=== PATIENT | male | born 1980 | race Caucasian/White ===

== ENCOUNTER 2023-09-10 15:51 | Outpatient (OUT) | payer OTHER, SELFPAY ==
--- NOTE | 2023-09-10 16:02 | US_ITS ---
The [address] [address] Patient Name: COLIN PORTER MRN: [id number] date: 1980 Sex: M Assigned Patient Location: US Current Patient Location: Accession/Order Number: [id number] Exam Date: 09/10/2023 16:09 Report Date: 09/12/2023 06:51 At the request of: LESLIE MCKEON Procedure: US abdomen limited EXAM: US abdomen limited HISTORY: . ABDOMINAL DISCOMFORT IN LEFT LOWER QUADRANT R10.32 . COMPARISON: None. TECHNIQUE: Grayscale and color imaging was performed FINDINGS: Scanning of the periumbilical region regional to the patient's area of pain there is a 5.6 x 3.2 x 5.5 cm mixed echogenic smoothly marginated oblong solid area. Within the left lower quadrant regional to the patient's area of pain and no discrete solid or cystic mass was noted. Bowel loops were noted in this area in the abdomen. US/US abdomen limited IMPRESSION: 1 no discrete mass noted ultrasonographically in the left lower quadrant. 2. In the periumbilical region there is a 5.6 x 3.2 cm smoothly marginated oblong mixed echogenic area. Findings could represent a hernia. Clinical correlation is suggested. CT of the abdomen and pelvis could be performed for further evaluation. Electronically authenticated by: JORDAN TEAGUE Date: 09/12/2023 06:51
== END 2023-09-10 15:52 | disposition home or self-care (01) ==
LOC: US 15:53
PROVIDERS: PCP Nurse Practitioner Family; Visit Provider Nurse Practitioner Family
DX: R10.32 Left lower quadrant pain (principal)
CPT/HCPCS: 76705

== ENCOUNTER 2023-09-13 09:14 | Outpatient (OUT) | payer OTHER, SELFPAY ==
[2023-09-13 09:33] LABS: Basophils Absolute Auto 0.1 10^3/uL (0.0-0.1); Basophils Percent Auto 0.7 % (0.2-2.0); Eosinophils Absolute Auto 0.1 10^3/uL (0.0-0.7); Eosinophils Percent Auto 1.7 % (0.9-7.0); Hematocrit 47.5 % (42.0-54.0); Immature Granulocytes Abs Auto 0.03 10^3/uL (0.00-0.03); Immature Granulocytes Pct Auto 0.4 % (0.0-0.5); Lymphocytes Absolute Auto 2.3 10^3/uL (1.2-3.8); Mean Corpuscular HGB Conc 33.7 g/dL (29.9-35.2); Mean Corpuscular Hemoglobin 31.4 pg (25.9-34.0); Mean Corpuscular Volume 93.1 fL (80.0-94.0); Mean Platelet Volume 8.6 fL (9.5-13.5); Monocytes Absolute Auto 0.5 10^3/uL (0.3-0.8); Monocytes Percent Auto 7.4 % (1.7-12.0); Neutrophils Percent Auto 56.8 % (43.0-75.0); Platelet Count 397 10^3/uL (150-450); Red Cell Distribution Width 11.9 % (11.0-15.0)
[2023-09-13 09:45] LABS: Estimated Average Glucose 128 mg/dL; Glycohemoglobin A1C 6.1 % (4.5-6.2)
[2023-09-13 09:58] LABS: Alanine Aminotransferase 92 U/L (16-63); Albumin Level 4.3 g/dL (3.4-5.0); Alkaline Phosphatase 77 U/L (46-116); Anion Gap 12.7; Aspartate Amino Transferase 44 U/L (15-37); BUN Creatinine Ratio 12.8; Bilirubin Total 0.5 mg/dL (0.2-1.0); Calcium 9.6 mg/dL (8.5-10.1); Carbon Dioxide 32.3 mmol/L (21.0-32.0); Chloride 97 mmol/L (98-107); Cholesterol 217 mg/dL (<=200); Estimated GFR (African America >60 (>=60); Estimated GFR (Non-African Ame >60 (>=60); Free T3 3.51 pg/mL (2.18-3.98); Globulin 4.2 g/dL; Glucose 113 mg/dL (74-106); HDL Cholesterol 43 mg/dL (40-60); Sodium 138 mmol/L (136-145); Thyroid Stimulating Hormone 1.458 uIU/mL (0.358-3.740); Total Protein 8.5 g/dL (6.4-8.2); Triglycerides 204 mg/dL (<=150); VLDL CHOLESTEROL 40.8 mg/dL
[2023-09-15 12:08] LABS: Insulin 53.7 uIU/mL (2.6-24.9)
== END 2023-09-13 09:15 | disposition home or self-care (01) ==
LOC: LAB 09:15
PROVIDERS: PCP Nurse Practitioner Family; Visit Provider Nurse Practitioner Family
DX: Z00.00 Encounter for general adult medical examination without abnormal findings (principal); E78.5 Hyperlipidemia, unspecified; R53.83 Other fatigue; R73.9 Hyperglycemia, unspecified; I10 Essential (primary) hypertension; E16.1 Other hypoglycemia; E03.9 Hypothyroidism, unspecified
CPT/HCPCS: 36415; 80053; 80061; 83036; 83525; 84436; 84443; 84481; 85025

== ENCOUNTER 2023-09-26 08:16 | Outpatient (OUT) | payer OTHER, SELFPAY ==
--- NOTE | 2023-09-26 08:19 | CT_ITS ---
[address] [address] Patient Name: COLIN PORTER MRN: [id number] date: 1980 Sex: M Assigned Patient Location: CT Current Patient Location: Accession/Order Number: [id number] Exam Date: 09/26/2023 09:25 Report Date: 09/29/2023 11:17 At the request of: LESLIE MCKEON Procedure: CT abdomen pelvis w con EXAMINATION: CT abdomen pelvis w con HISTORY: Abnormal Hernia K46.9 COMPARISON: No relevant comparison available. TECHNIQUE: CT images were created with IV contrast. Axial, Coronal, and Sagittal images. Dose reduction techniques were achieved by using automated exposure control and/or adjustment of mA and/or kV according to patient size and/or use of iterative reconstruction technique. FINDINGS: LUNG BASES: No visible pulmonary or pleural disease. LIVER: Diffuse hypoattenuation the liver consistent with hepatic steatosis. Focal fatty sparing at the gallbladder fossa BILIARY: No visible dilatation or calcification. PANCREAS: No lesion, fluid collection, ductal dilatation, or atrophy. SPLEEN: No enlargement or focal lesion. ADRENALS: No mass or enlargement. KIDNEYS: No mass, obstruction, or calcification. BOWEL/MESENTERY: Nonobstructive bowel gas pattern. Normal appendix. AORTA/VASCULAR: No aortic aneurysm. Mild calcific atherosclerosis RETROPERITONEUM: No mass or adenopathy. LYMPH NODES: No adenopathy. URINARY BLADDER: No visible focal wall thickening, lesion, or calculus. PELVIC ORGANS: No visible mass. Pelvic organs appropriate for patient age. ABDOMINAL WALL: 2 ventral hernias, as supraumbilical 3.2 cm hernia axial image 92 and an umbilical hernia measuring 5.7 cm axial image #102. Both hernias containing mesenteric fat without evidence of strangulation BONES: No bony lesion or fracture. OTHER: Negative. CT/CT abdomen pelvis w con IMPRESSION: 2 umbilical hernias containing mesenteric fat without strangulation Electronically authenticated by: JORDAN BENNETT Date: 09/29/2023 11:17
--- OUTSIDE RECORDS SUMMARY | 2023-09-26 08:21 | XMS_ITS | CCD ---
Author Organization [facility] Care Team Providers Care Sound Assistant Name Role Phone MIKE, LESLIE Admitting Unavailable MIKE, LESLIE Primary Care Unavailable MIKE, LESLIE Attending Unavailable MIKE, LESLIE Admitting Unavailable MIKE, LESLIE Primary Care Unavailable MIKE, LESLIE Consulting Unavailable MIKE, LESLIE Attending Unavailable MIKE, LESLIE Attending Unavailable MIKE, LESLIE Admitting Unavailable MIKE, LESLIE Primary Care Unavailable MIKE, LESLIE Consulting Unavailable MIKE, LESLIE Admitting Unavailable MIKE, LESLIE Primary Care Unavailable MIKE, LESLIE Attending Unavailable Rc Milan DO Attending Unavailabl e Rc Milan DO Primary Care Unavailabl e Allergies Allergy Classification Reported Allergen(s) Allergy Type Date of Onset Reaction(s) Facility (2 sources) Aspirin Drug Allergy 08-05-2016 [facility] Repository Problems Active Problems Problem Classification Problem Date Documented Da te Episodic/Chronic Unclassified (3 sources) CONTACT W/AND (SUSP) EXPOS COVID-19; Translations: [CONTACT W/AND (SUSP) EXPOS COVID-19] Onset: 03-17-2021 Unclassified (1 source) COUGH, UNSPECIFIED; Translations: [COUGH, UNSPECIFIED] Onset: 03-17-2021 Past or Other Problems Problem Classification Problem Date Documented Da te Episodic/Chronic Other upper respiratory disease (1 source) Other specified disorders of nose and nasal sinuses; Translations: [OTH SPEC D/O NOSE NASAL SINUSES] Onset: 03-17-2021 Episodic Unclassified (1 source) CONTACT W/AND (SUSP) EXPOS COVID-19; Translations: [CONTACT W/AND (SUSP) EXPOS COVID-19] Onset: 03-12-2021 Results Test Name Value Interpretation Reference Range Facility 25-HYDROXY VIT D (D2+D3 FRAC ) LC/MS-MSon 10-19-2021 25-Hydroxy, Vitamin D 58 ng/mL Normal [facility] Comment on above: Result Comment: Refe rence Range: All Ages: Target levels 30 - 100 Performed By: #### V ITDLC #### [facility] [address] [place] [address] Dr. Cheng Esqueda 25-Hydroxy, Vitamin D-2 <1.0 Normal [facility] Comment on above: Result Comment: This test was developed and its performance characteristics determined by [facility]. It has not been cleared or approved by the Food and Drug Administration. Performed By: #### V ITDLC #### [facility] [address] [place] [address] Dr. Cheng Esqueda 25-Hydroxy, Vitamin D-3 58 ng/mL Normal [facility] Comment on above: Result Comment: This test was developed and its performance characteristics determined by [facility]. It has not been cleared or approved by the Food and Drug Administration. Performed By: #### V ITDLC #### [facility] [address] [place] [address] Dr. Cheng Esqueda INSULINon 10-15-2021 Insulin 60.7 uIU/mL Critically high 2.6-24.9 [facility] Comment on above: Performed By: #### I NSULIN #### [facility] [address] [place] [address] Dr. Cheng Esqueda TESTOSTERONE, TOTALon 2021 Testosterone [Mass/Vol] 257 ng/dL Critically low 264-916 [facility] Comment on above: Result Comment: Adul t male reference interval is based on a population of healthy nonobese males (BMI <30) between 19 and 39 years old. Marika et.al. JCEM 2017,102;8274-3377. PMID: [id number]. Performed By: #### I NSULIN #### [facility] [address] [place] [address] Dr. Cheng Esqueda CBC AUTO DIFFon 10-13-2021 BASO # 0.0 103/ul Normal 0.0-0.1 [facility] Comment on above: Performed By: #### C BC #### [facility] [address] [place] [address] Dr. Cheng Esqueda Basophils/100 WBC (Bld) 0.8 % Normal 0.2-2.0 [facility] Comment on above: Performed By: #### C BC #### [facility] [address] [place] [address] Dr. Cheng Esqueda EO # 0.1 103/ul Normal 0.0-0.7 [facility] Comment on above: Performed By: #### C BC #### [facility] [address] [place] [address] Dr. Cheng Esqueda Eosinophils/100 WBC (Bld) 2.7 % Normal 0.9-7.0 [facility] Comment on above: Performed By: #### C BC #### [facility] [address] [place] [address] Dr. Cheng Esqueda Erythrocyte distribution width (RBC) [Ratio] 11.9 % Normal 11.0-15.0 [facility] Comment on above: Performed By: #### C BC #### [facility] [address] [place] [address] Dr. Cheng Esqueda Hematocrit (Bld) [Volume fraction] 46.4 % Normal 42.0-54.0 [facility] Comment on above: Performed By: #### C BC #### [facility] [address] [place] [address] Dr. Cheng Esqueda Hemoglobin (Bld) [Mass/Vol] 15.8 g/dL Normal 14.0-18.0 [facility] Comment on above: Performed By: #### C BC #### [facility] [address] [place] [address] Dr. Cheng Esqueda IG # 0.02 10e3/ul Normal 0.00-0.03 [facility] Comment on above: Performed By: #### C BC #### [facility] [address] [place] [address] Dr. Cheng Esqueda IG % 0.4 % Normal 0.0-0.5 [facility] Comment on above: Performed By: #### C BC #### [facility] [address] [place] [address] Dr. Cheng Esqueda LYMPH # 1.9 103/ul Normal 1.2-3.8 [facility] Comment on above: Performed By: #### C BC #### [facility] [address] [place] [address] Dr. Cheng Esqueda Lymphocytes/100 WBC (Bld) 36.8 % Normal 20.5-60.0 [facility] Comment on above: Performed By: #### C BC #### [facility] [address] [place] [address] Dr. Cheng Esqueda MANUAL DIFF REQ NO Normal [facility] Comment on above: Performed By: #### C BC #### [facility] [address] [place] [address] Dr. Cheng Esqueda MCH (RBC) [Entitic mass] 31.5 pg Normal 25.9-34.0 [facility] Comment on above: Performed By: #### C BC #### [facility] [address] [place] [address] Dr. Cheng Esqueda MCHC (RBC) [Mass/Vol] 34.1 g/dL Normal 29.9-35.2 [facility] Comment on above: Performed By: #### C BC #### [facility] [address] [place] [address] Dr. Cheng Esqueda MCV (RBC) [Entitic vol] 92.4 fL Normal 80.0-94.0 [facility] Comment on above: Performed By: #### C BC #### [facility] [address] [place] [address] Dr. Cheng Esqueda MONO # 0.5 103/ul Normal 0.3-0.8 [facility] Comment on above: Performed By: #### C BC #### [facility] [address] [place] [address] Dr. Cheng Esqueda Monocytes/100 WBC (Bld) 8.7 % Normal 1.7-12.0 [facility] Comment on above: Performed By: #### C BC #### [facility] [address] [place] [address] Dr. Cheng Esqueda NEUT # 2.6 103/ul Normal 1.4-6.5 [facility] Comment on above: Performed By: #### C BC #### [facility] [address] [address] [address] Cheng Esqueda Neutrophils/100 WBC (Bld) 50.6 % Normal 43.0-75.0 [facility] Comment on above: Performed By: #### C BC #### [facility] [address] [address] [address] Cheng Esqueda Platelet mean volume (Bld) [Entitic vol] 8.4 fL Critically low 9.5-13.5 [facility] Comment on above: Performed By: #### C BC #### [facility] [address] [place] [address] Dr. Cheng Esqueda PLT 331 103/ul Normal 150-450 [facility] Comment on above: Performed By: #### C BC #### [facility] [address] [place] [address] Dr. Cheng Esqeuda RBC 5.02 106/ul Normal 4.70-6.10 [facility] Comment on above: Performed By: #### C BC #### [facility] [address] [address] [address] Cheng Esqueda WBC 5.2 103/ul Normal 4.0-11.0 [facility] Comment on above: Performed By: #### C BC #### [facility] [address] [place] [address] Dr. Cheng Esqueda FREE THYROXINE INDEX T7on FTI 1.74 Normal 1.30-4.50 [facility] Comment on above: Performed By: #### L IPID, CMP, TSH, T7 #### [facility] [address] [address] [address] Cheng Esqueda T3U 31.0 % Critically low 33.0-40.0 [facility] Comment on above: Performed By: #### L IPID, CMP, TSH, T7 #### [facility] [address] [address] [address] Cheng Esqueda T4 [Mass/Vol] 5.60 ug/dL Normal 4.50-12.10 [facility] Comment on above: Performed By: #### L IPID, CMP, TSH, T7 #### [facility] [address] [id number] [address] Cheng Esqueda GLYCOHEMOGLOBIN A1Con 2021 ADA RECOMMENDATION SEE BELOW Normal [facility] Comment on above: Result Comment: ADA RECOMMENDED LIMIT 4.0 - 6.0 ADA THERAPEUTIC TARGET < 7.0 ACTION SUGGESTED > 7.0 Performed By: #### A 1C #### [facility] [address] [address] [address] Cheng Esqueda Glucose [Mass/Vol] 123 mg/dL Normal [facility] Comment on above: Performed By: #### A 1C #### [facility] [address] [place] [address] Dr. Cheng Esqueda HbA1c (Bld) [Mass fraction] 5.9 % Normal 4.5-6.2 [facility] Comment on above: Performed By: #### A 1C #### [facility] [address] [address] [address] Cheng Esqueda LIPID PROFILEon 10-13-2021 CHOL-HDL RATIO NORM SEE BELOW Normal [facility] Comment on above: Result Comment: 3.3 - 4.4 LOW RISK 4.4 - 7.1 AVERAGE RISK 7.1 - 11.0 MODERATE RISK >11.0 HIGH RISK Performed By: #### L IPID, CMP, TSH, T7 #### [facility] [address] [address] [address] Cheng Esqueda Cholesterol [Mass/Vol] 203 mg/dL Critically high <=200 [facility] Comment on above: Performed By: #### L IPID, CMP, TSH, T7 #### [facility] [address] [address] [address] Cheng Esqueda Cholesterol in HDL [Mass/Vol] 36 mg/dL Critically low 40-60 [facility] Comment on above: Performed By: #### L IPID, CMP, TSH, T7 #### [facility] [address] [address] [address] Cheng Esqueda Cholesterol in LDL [Mass/Vol] 116.0 mg/dL Normal [facility] Comment on above: Performed By: #### L IPID, CMP, TSH, T7 #### [facility] [address] [address] [address] Cheng Esqueda Cholesterol.total/Cho lesterol in HDL [Mass ratio] 5.6 {ratio} Normal [facility] Comment on above: Performed By: #### L IPID, CMP, TSH, T7 #### [facility] [address] [address] [address] Cheng Esqueda HDL NORMAL > or = 60 mg/dl - LO W CARDIOVASCULAR RISK <40 mg/dl - HIGH CARDIOVASCULAR RISK Normal [facility] Comment on above: Performed By: #### L IPID, CMP, TSH, T7 #### [facility] [address] [address] [address] Cheng Esqueda LDL CALC NORMAL SEE BELOW Normal [facility] Comment on above: Result Comment: <100 mg/dl OPTIMAL 100 - 129 mg/dl NEAR OR ABOVE OPTIMAL 130 - 159 mg/dl BORDERLINE HIGH 160 - 189 mg/dl HIGH >190 mg/dl VERY HIGH Performed By: #### L IPID, CMP, TSH, T7 #### [facility] [address] [address] [address] Cheng Esqueda Triglyceride [Mass/Vol] 255 mg/dL Critically high <=150 [facility] Comment on above: Performed By: #### L IPID, CMP, TSH, T7 #### [facility] [address] [address] [address] Cheng Esqueda VLDL CALC 51.0 mg/dL Normal [facility] Comment on above: Performed By: #### L IPID, CMP, TSH, T7 #### [facility] [address] [address] [address] Cheng Esqueda PROF 14(COMP METB)on 022 Albumin [Mass/Vol] 4.4 g/dL Normal 3.4-5.0 [facility] Comment on above: Performed By: #### L IPID, CMP, TSH, T7 #### [facility] [address] [address] [address] Cheng Esqueda Albumin/Globulin [Mass ratio] 1.2 {ratio} Normal [facility] Comment on above: Performed By: #### L IPID, CMP, TSH, T7 #### [facility] [address] [address] [address] Cheng Esqueda ALP [Catalytic activity/Vol] 74 U/L Normal 46-116 [facility] Comment on above: Performed By: #### L IPID, CMP, TSH, T7 #### [facility] [address] [address] [address] Cheng Esqueda ALT [Catalytic activity/Vol] 93 U/L Critically high 16-63 [facility] Comment on above: Performed By: #### L IPID, CMP, TSH, T7 #### [facility] [address] [address] [address] Cheng Esqueda Anion gap [Moles/Vol] 11.3 mmol/L Normal [facility] Comment on above: Performed By: #### L IPID, CMP, TSH, T7 #### [facility] [address] [address] [address] Cheng Esqueda AST [Catalytic activity/Vol] 43 U/L Critically high 15-37 [facility] Comment on above: Performed By: #### L IPID, CMP, TSH, T7 #### [facility] [address] [address] [address] Cheng Esqueda Bilirubin [Mass/Vol] 0.4 mg/dL Normal 0.2-1.0 [facility] Comment on above: Performed By: #### L IPID, CMP, TSH, T7 #### [facility] [address] [address] [address] Cheng Esqueda Calcium [Mass/Vol] 9.5 mg/dL Normal 8.5-10.1 [facility] Comment on above: Performed By: #### L IPID, CMP, TSH, T7 #### [facility] [address] [address] [address] Cheng Esqueda Chloride [Moles/Vol] 99 mmol/L Normal 98-107 [facility] Comment on above: Performed By: #### L IPID, CMP, TSH, T7 #### [facility] [address] [address] [address] Cheng Esqueda CO2 [Moles/Vol] 31.7 mmol/L Normal 21.0-32.0 [facility] Comment on above: Performed By: #### L IPID, CMP, TSH, T7 #### [facility] [address] [place] [address] Dr. Cheng Esqueda Creatinine [Mass/Vol] 1.06 mg/dL Normal 0.70-1.30 [facility] Comment on above: Performed By: #### L IPID, CMP, TSH, T7 #### [facility] [address] [place] [address] Dr. Cheng Esqueda EGFR-AF FILIPINO >60 Normal >=60 [facility] Comment on above: Performed By: #### L IPID, CMP, TSH, T7 #### [facility] [address] [place] [address] Dr. Cheng Esqueda EGFR-NON AF FILIPINO >60 Normal >=60 [facility] Comment on above: Performed By: #### L IPID, CMP, TSH, T7 #### [facility] [address] [place] [address] Dr. Cheng Esqueda Globulin (S) [Mass/Vol] 3.7 g/dL Normal [facility] Comment on above: Performed By: #### L IPID, CMP, TSH, T7 #### [facility] [address] [address] [address] Cheng Esqueda Glucose [Mass/Vol] 122 mg/dL Critically high 74-106 [facility] Comment on above: Performed By: #### L IPID, CMP, TSH, T7 #### [facility] [address] [place] [address] Dr. Cheng Esqueda Potassium [Moles/Vol] 4.0 mmol/L Normal 3.5-5.1 [facility] Comment on above: Performed By: #### L IPID, CMP, TSH, T7 #### [facility] [address] [place] [address] Dr. Cheng Esqueda Protein [Mass/Vol] 8.1 g/dL Normal 6.4-8.2 [facility] Comment on above: Performed By: #### L IPID, CMP, TSH, T7 #### [facility] [address] [place] [address] Dr. Cheng Esqueda Sodium [Moles/Vol] 138 mmol/L Normal 136-145 [facility] Comment on above: Performed By: #### L IPID, CMP, TSH, T7 #### [facility] [address] [place] [address] Dr. Cheng Esqueda Urea nitrogen [Mass/Vol] 12.0 mg/dL Normal 7.0-18.0 [facility] Comment on above: Performed By: #### L IPID, CMP, TSH, T7 #### [facility] [address] [place] [address] Dr. Cheng Esqueda Urea nitrogen/Creatinine [Mass ratio] 11.3 mg/mg Normal [facility] Comment on above: Performed By: #### L IPID, CMP, TSH, T7 #### [facility] [address] [place] [address] Dr. Cheng Esqueda TSHon 10-13-2021 TSH 0.885 uIU/mL Normal 0.358-3.740 [facility] Comment on above: Performed By: #### L IPID, CMP, TSH, T7 #### [facility] [address] [place] [address] Dr. Cheng Esqueda VITAMIN B12on 10-13-2021 Cobalamin (Vitamin B12) [Mass/Vol] 549.0 pg/mL Normal 193.0-986.0 [facility] Comment on above: Performed By: #### V ITB12 #### [facility] [address] [place] [address] Dr. Cheng Esqueda [facility]on SARS-CoV-2 (COVID-19) RNA LLOYD+probe Ql (Unsp spec) Not detected Normal NOT DETECTED [facility] Comment on above: Result Comment: This test is not yet approved or cleared by the [place] FDA. When there are no FDA-approved or cleared tests available, and other criteria are met, FDA can make tests available under an emergency access mechanism called an Emergency Use Authorization (EUA). The EUA for this test is supported by the Pharmacy Teacher of Health and Human Service's (HHS's) declaration that circumstances exist to justify the emergency use of in vitro diagnostics for the detection and/or diagnosis of the virus that causes COVID-19. This EUA will remain in effect (meaning this test can be used) for the duration of the COVID-19 declaration justifying emergency of IVDs, unless it is terminated or revoked by FDA (after which the test may no longer be used). When diagnostic testing is negative, the possibility of a false negative should be considered in the context of a patient's recent exposures and the presence of clinical signs and symptoms consistent with SARS-CoV-2. Performed By: #### C [facility] #### [facility] [address] [place] [address] Dr. Cheng Esqueda Encounters Encounter Date Encounter Type Care Provider Facility Start: 05-16-2022 ambulatory Rc Milan DO Fa cility:[facility] Start: 11-03-2021 ambulatory LESLIE MCKEON Facility: [facility] Start: 10-16-2021 Encounter for genera l adult medical examination without abnormal findings LESLIE MCKEON [facility] Start: 10-13-2021 End: 10-14-2021 ambulatory LESLIE MCKEON Facility:[facility] Start: 10-13-2021 End: 10-14-2021 Encounter for general adult medical examination without abnormal findings LESLIE MCKEON Facility:[facility] Start: 08-03-2021 ambulatory LESLIE MCKEON Facility: [facility] Start: 03-12-2021 End: 03-12-2021 ambulatory LESLIE MCKEON Facility:[facility] Payers Date Payer Category Payer Unknown 1990 Unknown [id number] 1979 Unknown [id number] 2.16.84 [id number] 1979 Unknown [id number] 2.16.84 [id number] 1979 Unknown [id number] 2.16.84 [id number] 1979 Unknown [id number] [id number] [id number] 1959 Self-pay [id number] 1959 Unknown [id number] Summary Purpose Family History No Family History Records FoundNo Family History Records Found Advance Directives No Advanced Directives Records FoundNo Advanced Directives Records Found Additional Source Comments (unrecognized sect ion and content) No Status Records FoundNo Status Records Found INFORMATION SOURCE (unrecogn ized section and content) DATE CREATED AUTHOR 11/04/2021 [facility] DATE CREATED AUTHOR AUTHOR'S FAVIANIZ GRAHAM 04/30/2022 [facility] FOR RECORDS PERTAINING TO PATIENTS WHO ARE OR HAVE BEEN ENROLLED IN A CHEMICAL DEPENDENCY/SUBSTANCEABUSE PROGRAM, SOME INFORMATION MAY BE OMITTED. This clinical summary was aggregated from multiple sources. Caution should be exercised in using it in the provision of clinical care. This summary normalizes information from multiple sources, and as a consequence, information in this document may materially change the coding, format and clinical context of patient data. In addition, data may be omitted in some cases. CLINICAL DECISIONS SHOULD BE BASED ON THE PRIMARY CLINICAL RECORDS. [facility] [employer] [facility]. provides no warranty or guarantee of the accuracy or completeness of information in this document.
== END 2023-09-26 08:17 | disposition home or self-care (01) ==
LOC: CT 08:16
PROVIDERS: PCP Nurse Practitioner Family; Visit Provider Nurse Practitioner Family
DX: K46.9 Unspecified abdominal hernia without obstruction or gangrene (principal)
CPT/HCPCS: 74177; Q9967

== ENCOUNTER 2024-07-01 09:28 | Outpatient (OUT) | payer OTHER, SELFPAY ==
[2024-07-01 10:01] LABS: Estimated Average Glucose 146 mg/dL; Glycohemoglobin A1C 6.7 % (4.5-6.2)
== END 2024-07-01 09:29 | disposition home or self-care (01) ==
LOC: LAB 09:30
PROVIDERS: PCP Nurse Practitioner Family; Visit Provider Nurse Practitioner Family
DX: E66.01 Morbid (severe) obesity due to excess calories (principal)
CPT/HCPCS: 36415; 83036; 83525

== ENCOUNTER 2024-11-06 09:36 | Outpatient (OUT) | payer OTHER, SELFPAY ==
--- OUTSIDE RECORDS SUMMARY | 2024-11-06 09:39 | XMS_ITS | CCD ---
Author Organization [facility] Care Team Providers Care Supervisor Lens Generating Name Role Phone SAMARA ORDONEZ Admitting Unavailable MIKE, SAMARA Primary Care Unavailable MIKE, SAMARA Attending Unavailable MIKE, SAMARA Admitting Unavailable MIKE, SAMARA Primary Care Unavailable MIKE, SAMARA Consulting Unavailable MIKE, SAMARA Attending Unavailable MIKE, SAMARA Attending Unavailable MIKE, SAMARA Admitting Unavailable MIKE, SAMARA Primary Care Unavailable MIKE, SAMARA Consulting Unavailable MIKE, SAMARA Admitting Unavailable MIKE, SAMARA Primary Care Unavailable MIKE, SAMARA Attending Unavailable Rc Milan DO Attending Unavailabl Rc Atwood DO Primary Care Unavailmargaert e SAMARA ORDONEZ Primary Care Physician [phone] Martell CARMOAN Attending Unavailable MIKE, SAMARA S Referring Unavailable Mike BUMPER AND PAINTER - Samara ELIZONDO Primary Care Provide r MKIE SAMARA S Primary Care Unavailable JOSE VEE Referring Unavailable MIKE, SAMARA S Primary Care Unavailable JOSE VEE Referring Unavailable Allergies Allergy Classification Reported Allergen(s) Allergy Type Date of Onset Reaction(s) Facility (3 sources) Aspirin; Translations: [aspirin] Drug Allergy 7 [facility] Repository (1 source) Aspirin; Translations: [aspirin] Drug Allergy Patient reported problems (finding) [facility] (2 sources) Ibuprofen; Translations: [ibuprofen] Drug Allergy Patient reported problems (finding) [facility] (2 sources) Aluminum aspirin Drug Allergy 8 Other (See Comments) [facility] Medications Current Medications Medication Drug Class(es) Dates Sig (Normalized) Sig (Original) 0.5 ML tirzepatide 5 MG/ML Auto-Injector [Mounjaro] (1 source) Start: 09-30-2023 inject 2.5 mg by subcutaneous injection every week Mounjaro 2.5 mg/0.5 mL subcutaneous solution 2.5 mg, SubCutaneous, qWeek, Refills(s) 0 Start Date: 09/30/23 Status: Ordered amitriptyline hydrochloride 75 mg oral tablet (3 sources) Tricyclic Antidepressant Start: 11-17-2023 amitriptyline (ELAVIL) 75 MG tablet 11/17/2023 Active Start: 09-30-2023 take 1 tablet by sujey th once daily at bedtime amitriptyline 75 mg oral tablet 75 mg = 1 tab(s), Oral, Once a day (at bedtime), Refills(s) 0 Start Date: 09/30/23 Status: Ordered cetirizine hydrochloride 10 mg oral tablet (3 sources) Histamine-1 Receptor Antagonist Start: 08-25-2023 take 1 tablet by mouth once daily cetirizine (ZYRTEC) 10 MG tablet Take 1 tablet by mouth daily 08/25/2023 Active cyclobenzaprine hydrochloride 10 mg oral tablet (1 source) Muscle Relaxant Start: 09-30-2023 take 1 tablet by mouth at bedtime as needed for muscle spasms cyclobenzaprine 10 mg Tab 10 mg = 1 tab(s), Oral, Bedtime, PRN for spasm, Refills(s) 0 Start Date: 09/30/23 Status: Ordered hydroCHLOROthiazide 25 mg oral tablet (3 sources) Thiazide Diuretic Start: 09-30-2023 take 1 tablet by mouth once daily in the morning hydroCHLOROthiazide (HYDRODIURIL) 25 MG tablet Take 1 tablet by mouth every morning 10/09/2023 Active lisinopril 20 mg oral tablet (3 sources) Angiotensin Converting Enzyme Inhibitor Start: 11-13-2023 take 1 tablet by mouth once daily lisinopril (PRINIVIL;ZESTRIL) 20 MG tablet Take 1 tablet by mouth daily 11/13/2023 Active Start: 09-30-2023 take 1 tablet by usjey th once daily lisinopril 20 mg Tab 20 mg = 1 tab(s), Oral, Daily, Refills(s) 0 Start Date: 09/30/23 Status: Ordered mupirocin 0.02 mg/mg topical ointment (2 sources) RNA Synthetase Inhibitor Antibacterial Start: 09-09-2023 mupirocin (BACTR OBAN) 2 % ointment apply 1 APPLICATION topically twice a day for 5 days 09/09/2023 Active omeprazole 40 mg delayed release oral capsule (3 sources) Proton Pump Inhibitor Start: 11-13-2023 omeprazo le (PRILOSEC) 40 MG delayed release capsule TAKE 1 CAPSULE BY MOUTH 30 MINUTES BEFORE MORNING MEAL ONCE DAILY FOR 90 DAYS 11/13/2023 Active Start: 09-30-2023 take 1 capsule by mo [facility] once daily omeprazole 40 mg Cap-DR 40 mg = 1 cap(s), Oral, Daily, Refills(s) 0 Start Date: 09/30/23 Status: Ordered simvastatin 40 mg oral tablet (3 sources) HMG-CoA Reductase Inhibitor Start: 11-08-2023 take 1 tablet by mouth once daily simvastatin (ZOCOR) 40 MG tablet Take 1 tablet by mouth nightly 11/08/2023 Active Start: 09-30-2023 take 1 tablet by sujey th once daily in the evening simvastatin 40 mg Tab 40 mg = 1 tab(s), Oral, qPM, Refills(s) 0 Start Date: 09/30/23 Status: Ordered Vitamin D3 1000 intl units (25 mcg) Tab (1 source) Start: 09-30-2023 take 1 tablet by mouth once daily Vitamin D3 1000 intl units (25 mcg) Tab 25 mcg = 1 tab(s), Oral, Daily, Refills(s) 0 Start Date: 09/30/23 Status: Ordered zolpidem tartrate 10 mg oral tablet (3 sources) gamma-Aminobutyr ic Acid-ergic Agonist Start: 11-17-2023 zolpidem (AMBIEN) 10 MG tablet 11/17/2023 Active Start: 09-30-2023 take 1 tablet by sujey th once daily at bedtime as needed for sleep Ambien 10 mg Tab 10 mg = 1 tab(s), Oral, Once a day (at bedtime), PRN for sleep, Refills(s) 0 Start Date: 09/30/23 Status: Ordered Problems Active Problems Problem Classification Problem Date Documented Date Episodic/Chronic Anxiety disorders (1 source) Generalized anxiety disorder 09-30-2023 Chronic Disorders of lipid metabolism (1 source) Hyperlipidemia 09-30-2023 Chronic Esophageal disorders (1 source) Gastroesophageal reflux disease 09-30-2023 Chronic Essential hypertension (1 source) Hypertensive disorder 09-30-2023 Chronic Headache; including migraine (1 source) Migraine 09-30-2023 Chronic Nutritional deficiencies (1 source) Vitamin D deficiency 09-30-2023 Chronic Other connective tissue disease (1 source) Fibromyalgia 09-30-2023 Episodic Other endocrine disorders (1 source) Hyperinsulinism 09-30-2023 Chronic Other gastrointestinal disorders (1 source) Irritable bowel syndrome 09-30-2023 Chronic Other nutritional; endocrine; and metabolic disorders (1 source) Body mass index 40+ - severely obese 09-30-2023 Chronic Other nutritional; endocrine; and metabolic disorders (1 source) Severe obesity 09-30-2023 Chronic Other screening for suspected conditions (not mental disorders or infectious disease) (1 source) 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 Residual codes; unclassified (1 source) Obstructive sleep apnea syndrome 09-30-2023 Chronic Residual codes; unclassified (1 source) Insomnia 09-30-2023 Episodic Screening and history of mental health and substance abuse codes (1 source) Ex-tobacco user 09-30-2023 Episodic Unclassified (3 sources) CONTACT W/AND (SUSP) EXPOS COVID-19; Translations: [CONTACT W/AND (SUSP) EXPOS COVID-19] Onset: 2 Unclassified (1 source) COUGH, UNSPECIFIED; Translations: [COUGH, UNSPECIFIED] Onset: 2 Past or Other Problems Problem Classification Problem Date Documented Da te Episodic/Chronic Other upper respiratory disease (1 source) Other specified disorders of nose and nasal sinuses; Translations: [OTH SPEC D/O NOSE NASAL SINUSES] Onset: 03-17-2021 Episodic Unclassified (1 source) CONTACT W/AND (SUSP) EXPOS COVID-19; Translations: [CONTACT W/AND (SUSP) EXPOS COVID-19] Onset: 03-12-2021 Results Test Name Value Interpretation Reference Range Facility Basic Metabolic Panelon 06-08 Anion gap [Moles/Vol] 12 mmol/L 9 - 16 mmol/L [facility] Calcium [Mass/Vol] 10 mg/dL 8.6 - 10. 4 mg/dL [facility] Chloride [Moles/Vol] 99 mmol/L 98 - 10 7 mmol/L [facility] CO2 [Moles/Vol] 29 mmol/L 20 - 31 mmol/L [facility] Creatinine [Mass/Vol] 1.1 mg/dL 0.7 - 1.2 mg/dL [facility] Est, Glom Filt Rate 85 - PINF [facility] Comment on above: These results are not intended for use in patients <18 years of age. eGFR results are calculated without a race factor using the 2020 CKD-EPI equation. Careful clinical correlation is recommended, particularly when comparing to results calculated using previous equations. The CKD-EPI equation is less accurate in patients with extremes of muscle mass, extra-renal metabolism of creatine, excessive creatine ingestion, or following therapy that affects renal tubular secretion. Glucose [Mass/Vol] 132 mg/dL High 74 - 99 mg/dL [facility] Interpretation and review of laboratory results Abnormal [facility] Potassium [Moles/Vol] 4 mmol/L 3.7 - 5.3 mmol/L [facility] Sodium [Moles/Vol] 140 mmol/L 136 - 145 mmol/L [facility] Urea nitrogen [Mass/Vol] 13 mg/dL 6 - 20 mg/dL [facility] Basic Metabolic Profon 06-21 Anion gap [Moles/Vol] 12 mmol/L Normal 9-16 [facility] Comment on above: Performed By: #### B MP #### [facility] [place] [id number] Machine Operator Replanter: Juarez Obrien MD Calcium [Mass/Vol] 10.0 mg/dL Normal 8.6-10.4 [facility] Comment on above: Performed By: #### B MP #### [facility] [address] [id number] Machine Operator Replanter: Juarez Obrien MD Chloride [Moles/Vol] 99 mmol/L Normal 98-107 [facility] Comment on above: Performed By: #### B MP #### [address] [address] Machine Operator Replanter: Juarez Obrien MD CO2 [Moles/Vol] 29 mmol/L Normal 20-31 [facility] Comment on above: Performed By: #### B MP #### [address] [address] Machine Operator Replanter: Juarez Obrien MD Creatinine [Mass/Vol] 1.1 mg/dL Normal 0.7-1.2 [facility] Comment on above: Performed By: #### B MP #### [address] [address] Machine Operator Replanter: Juarez Obrien MD GFR/1.73 sq M.predicted among non-blacks MDRD (S/P/Bld) [Vol rate/Area] 85 mL/min/{1.73_m2} Normal >60 [facility] Comment on above: Result Comment: These results are not intended for use in patients <18 years of age. eGFR results are calculated without a race factor using the 2020 CKD-EPI equation. Careful clinical correlation is recommended, particularly when comparing to results calculated using previous equations. The CKD-EPI equation is less accurate in patients with extremes of muscle mass, extra-renal metabolism of creatine, excessive creatine ingestion, or following therapy that affects renal tubular secretion. Performed By: #### B MP #### [address] [address] Machine Operator Replanter: Juarez Obrien MD Glucose [Mass/Vol] 132 mg/dL High 74-99 [facility] Comment on above: Performed By: #### B MP #### [address] [address] Machine Operator Replanter: Juarez Obrien MD Potassium [Moles/Vol] 4.0 mmol/L Normal 3.7-5.3 [facility] Comment on above: Performed By: #### B MP #### [address] [address] Machine Operator Replanter: Juarez Obrien MD Sodium [Moles/Vol] 140 mmol/L Normal 136-145 [facility] Comment on above: Performed By: #### B MP #### [facility] [address] [place] [address] Machine Operator Replanter: Juarez Obrien MD Urea nitrogen [Mass/Vol] 13 mg/dL Normal 6-20 [facility] Comment on above: Performed By: #### B MP #### [facility] [address] [place] [address] Machine Operator Replanter: Juarez Obrien MD 25-HYDROXY VIT D (D2+D3 FRAC ) LC/MS-MSon 10-19-2021 25-Hydroxy, Vitamin D 58 ng/mL Normal [facility] Comment on above: Result Comment: Refe rence Range: All Ages: Target levels 30 - 100 Performed By: #### V ITDLC #### [facility] [address] [place] [address] Dr. Cheng Esqueda 25-Hydroxy, Vitamin D-2 <1.0 Normal [facility] Comment on above: Result Comment: This test was developed and its performance characteristics determined by [facility]. It has not been cleared or approved by the Food and Drug Administration. Performed By: #### V ITDLC #### [facility] [address] [place] [address] Dr. Cheng Esqueda 25-Hydroxy, Vitamin D-3 58 ng/mL Normal [facility] Comment on above: Result Comment: This test was developed and its performance characteristics determined by [facility]. It has not been cleared or approved by the Food and Drug Administration. Performed By: #### V ITDLC #### [facility] [address] [place] [address] Dr. Cheng Esqueda INSULINon 10-15-2021 Insulin 60.7 uIU/mL Critically high 2.6-24.9 [facility] Comment on above: Performed By: #### I NSULIN #### [facility] [address] [place] [address] Dr. Cheng Esqueda TESTOSTERONE, TOTALon 2021 Testosterone [Mass/Vol] 257 ng/dL Critically low 264-916 [facility] Comment on above: Result Comment: Adul t male reference interval is based on a population of healthy nonobese males (BMI <30) between 19 and 39 years old. oniel Hairston.al. JCEM 2017,102;5210-4567. PMID: [id number]. Performed By: #### I NSULIN #### [facility] [address] [place] [address] Dr. Cheng Esqueda CBC AUTO DIFFon 10-13-2021 BASO # 0.0 103/ul Normal 0.0-0.1 [facility] Comment on above: Performed By: #### C BC #### [facility] [address] [place] [address] Dr. Cheng Esqueda Basophils/100 WBC (Bld) 0.8 % Normal 0.2-2.0 [facility] Comment on above: Performed By: #### C BC #### [facility] [address] [place] [address] Dr. Cheng Esqueda EO # 0.1 103/ul Normal 0.0-0.7 [facility] Comment on above: Performed By: #### C BC #### [facility] [address] [place] [address] Dr. Cheng Esqueda Eosinophils/100 WBC (Bld) 2.7 % Normal 0.9-7.0 [facility] Comment on above: Performed By: #### C BC #### [facility] [address] [place] [address] Dr. Cheng Esqueda Erythrocyte distribution width (RBC) [Ratio] 11.9 % Normal 11.0-15.0 [facility] Comment on above: Performed By: #### C BC #### [facility] [address] [place] [address] Dr. Cheng Esqueda Hematocrit (Bld) [Volume fraction] 46.4 % Normal 42.0-54.0 [facility] Comment on above: Performed By: #### C BC #### [facility] [address] [place] [address] Dr. Cheng Esqueda Hemoglobin (Bld) [Mass/Vol] 15.8 g/dL Normal 14.0-18.0 [facility] Comment on above: Performed By: #### C BC #### [facility] [address] [place] [address] Dr. Cheng Esqueda IG # 0.02 10e3/ul Normal 0.00-0.03 [facility] Comment on above: Performed By: #### C BC #### [facility] [address] [place] [address] Dr. Cheng Esqueda IG % 0.4 % Normal 0.0-0.5 [facility] Comment on above: Performed By: #### C BC #### [facility] [address] [place] [address] Dr. Cheng Esqueda LYMPH # 1.9 103/ul Normal 1.2-3.8 [facility] Comment on above: Performed By: #### C BC #### [facility] [address] [place] [address] Dr. Cheng Esqueda Lymphocytes/100 WBC (Bld) 36.8 % Normal 20.5-60.0 [facility] Comment on above: Performed By: #### C BC #### [facility] [address] [place] [address] Dr. Cheng Esqueda MANUAL DIFF REQ NO Normal [facility] Comment on above: Performed By: #### C BC #### [facility] [address] [place] [address] Dr. Cheng Esqueda MCH (RBC) [Entitic mass] 31.5 pg Normal 25.9-34.0 [facility] Comment on above: Performed By: #### C BC #### [facility] [address] [place] [address] Dr. Cheng Esqueda MCHC (RBC) [Mass/Vol] 34.1 g/dL Normal 29.9-35.2 [facility] Comment on above: Performed By: #### C BC #### [facility] [address] [place] [address] Dr. Cheng Esqueda MCV (RBC) [Entitic vol] 92.4 fL Normal 80.0-94.0 [facility] Comment on above: Performed By: #### C BC #### [facility] [address] [place] [address] Dr. Cheng Esqueda MONO # 0.5 103/ul Normal 0.3-0.8 [facility] Comment on above: Performed By: #### C BC #### [facility] [address] [place] [address] Dr. Cheng Esqueda Monocytes/100 WBC (Bld) 8.7 % Normal 1.7-12.0 [facility] Comment on above: Performed By: #### C BC #### [facility] [address] [place] [address] Dr. Cheng Esqueda NEUT # 2.6 103/ul Normal 1.4-6.5 [facility] Comment on above: Performed By: #### C BC #### [facility] [address] [place] [address] Dr. Cheng Esqueda Neutrophils/100 WBC (Bld) 50.6 % Normal 43.0-75.0 [facility] Comment on above: Performed By: #### C BC #### [facility] [address] [place] [address] Dr. Cheng Esqueda Platelet mean volume (Bld) [Entitic vol] 8.4 fL Critically low 9.5-13.5 [facility] Comment on above: Performed By: #### C BC #### [facility] [address] [place] [address] Dr. Cheng Esqueda PLT 331 103/ul Normal 150-450 [facility] Comment on above: Performed By: #### C BC #### [facility] [address] [place], [place] [id number] Dr. Cheng Esqueda RBC 5.02 106/ul Normal 4.70-6.10 [facility] Comment on above: Performed By: #### C BC #### [facility] [address] [place] [address] Dr. Cheng Esqueda WBC 5.2 103/ul Normal 4.0-11.0 [facility] Comment on above: Performed By: #### C BC #### [facility] [address] [place] [address] [address] Cheng Esqueda FREE THYROXINE INDEX T7on FTI 1.74 Normal 1.30-4.50 [facility] Comment on above: Performed By: #### L IPID, CMP, TSH, T7 #### [facility] [address] [address] [address] Cheng Esqueda T3U 31.0 % Critically low 33.0-40.0 [facility] Comment on above: Performed By: #### L IPID, CMP, TSH, T7 #### [facility] [address] [address] [address] Cheng Esqueda T4 [Mass/Vol] 5.60 ug/dL Normal 4.50-12.10 [facility] Comment on above: Performed By: #### L IPID, CMP, TSH, T7 #### [facility] [address] [address] [address] Cheng Esqueda GLYCOHEMOGLOBIN A1Con 2021 ADA RECOMMENDATION SEE BELOW Normal [facility] Comment on above: Result Comment: ADA RECOMMENDED LIMIT 4.0 - 6.0 ADA THERAPEUTIC TARGET < 7.0 ACTION SUGGESTED > 7.0 Performed By: #### A 1C #### [facility] [address] [address] [address] Cheng Esqueda Glucose [Mass/Vol] 123 mg/dL Normal [facility] Comment on above: Performed By: #### A 1C #### [facility] [address] [address] [address] Cheng Esqueda HbA1c (Bld) [Mass fraction] 5.9 % Normal 4.5-6.2 [facility] Comment on above: Performed By: #### A 1C #### [facility] [address] [place] [address] Dr. Cheng Esqueda LIPID PROFILEon 10-13-2021 CHOL-HDL RATIO NORM SEE BELOW Normal [facility] Comment on above: Result Comment: 3.3 - 4.4 LOW RISK 4.4 - 7.1 AVERAGE RISK 7.1 - 11.0 MODERATE RISK >11.0 HIGH RISK Performed By: #### L IPID, CMP, TSH, T7 #### [facility] [address] [address] [address] Cheng Esqueda Cholesterol [Mass/Vol] 203 mg/dL Critically high <=200 [facility] Comment on above: Performed By: #### L IPID, CMP, TSH, T7 #### [facility] [address] [address] [address] Cheng Esqueda Cholesterol in HDL [Mass/Vol] 36 mg/dL Critically low 40-60 [facility] Comment on above: Performed By: #### L IPID, CMP, TSH, T7 #### [facility] [address] [place] [address] Dr. Cheng Esqueda Cholesterol in LDL [Mass/Vol] 116.0 mg/dL Normal [facility] Comment on above: Performed By: #### L IPID, CMP, TSH, T7 #### [facility] [address] [address] [address] Cheng Esqueda Cholesterol.total/Cho lesterol in HDL [Mass ratio] 5.6 {ratio} Normal [facility] Comment on above: Performed By: #### L IPID, CMP, TSH, T7 #### [facility] [address] [address] [address] Cheng Esqueda HDL NORMAL > or = 60 mg/dl - LO W CARDIOVASCULAR RISK <40 mg/dl - HIGH CARDIOVASCULAR RISK Normal [facility] Comment on above: Performed By: #### L IPID, CMP, TSH, T7 #### [facility] [address] [address] [address] Cheng Esqueda LDL CALC NORMAL SEE BELOW Normal [facility] Comment on above: Result Comment: <100 mg/dl OPTIMAL 100 - 129 mg/dl NEAR OR ABOVE OPTIMAL 130 - 159 mg/dl BORDERLINE HIGH 160 - 189 mg/dl HIGH >190 mg/dl VERY HIGH Performed By: #### L IPID, CMP, TSH, T7 #### [facility] [address] [address] [address] Cheng Esqueda Triglyceride [Mass/Vol] 255 mg/dL Critically high <=150 [facility] Comment on above: Performed By: #### L IPID, CMP, TSH, T7 #### [facility] [address] [address] [address] Cheng Esqueda VLDL CALC 51.0 mg/dL Normal [facility] Comment on above: Performed By: #### L IPID, CMP, TSH, T7 #### [facility] [address] [address] [address] Cheng Esqueda PROF 14(COMP METB)on 022 Albumin [Mass/Vol] 4.4 g/dL Normal 3.4-5.0 [facility] Comment on above: Performed By: #### L IPID, CMP, TSH, T7 #### [facility] [address] [place] [address] Dr. Cheng Esqueda Albumin/Globulin [Mass ratio] 1.2 {ratio} Normal [facility] Comment on above: Performed By: #### L IPID, CMP, TSH, T7 #### [facility] [address] [address] [address] Cheng Esqueda ALP [Catalytic activity/Vol] 74 U/L Normal 46-116 [facility] Comment on above: Performed By: #### L IPID, CMP, TSH, T7 #### [facility] [address] [place] [address] Dr. Cheng Esqueda ALT [Catalytic activity/Vol] 93 U/L Critically high 16-63 [facility] Comment on above: Performed By: #### L IPID, CMP, TSH, T7 #### [facility] [address] [address] [address] Cheng Esqueda Anion gap [Moles/Vol] 11.3 mmol/L Normal [facility] Comment on above: Performed By: #### L IPID, CMP, TSH, T7 #### [facility] [address] [address] [address] Cheng Esqueda AST [Catalytic activity/Vol] 43 U/L Critically high 15-37 [facility] Comment on above: Performed By: #### L IPID, CMP, TSH, T7 #### [facility] [address] [place] [address] Dr. Cheng Esqueda Bilirubin [Mass/Vol] 0.4 mg/dL Normal 0.2-1.0 [facility] Comment on above: Performed By: #### L IPID, CMP, TSH, T7 #### [facility] [address] [place] [address] Dr. Cheng Esqueda Calcium [Mass/Vol] 9.5 mg/dL Normal 8.5-10.1 [facility] Comment on above: Performed By: #### L IPID, CMP, TSH, T7 #### [facility] [address] [place] [address] Dr. Cheng Esqueda Chloride [Moles/Vol] 99 mmol/L Normal 98-107 [facility] Comment on above: Performed By: #### L IPID, CMP, TSH, T7 #### [facility] [address] [place] [address] Dr. Cheng Esqueda CO2 [Moles/Vol] 31.7 mmol/L Normal 21.0-32.0 [facility] Comment on above: Performed By: #### L IPID, CMP, TSH, T7 #### [facility] [address] [place] [address] Dr. Cheng Esqueda Creatinine [Mass/Vol] 1.06 mg/dL Normal 0.70-1.30 [facility] Comment on above: Performed By: #### L IPID, CMP, TSH, T7 #### [facility] [facility] [address] [place] [address] Dr. Cheng Esqueda EGFR-AF SAMOAN >60 Normal >=60 [facility] Comment on above: Performed By: #### L IPID, CMP, TSH, T7 #### [facility] [address] [place] [address] Dr. Cheng Esqueda EGFR-NON AF SAMOAN >60 Normal >=60 [facility] Comment on above: Performed By: #### L IPID, CMP, TSH, T7 #### [facility] [address] [place] [address] Dr. Cheng Esqueda Globulin (S) [Mass/Vol] 3.7 g/dL Normal [facility] Comment on above: Performed By: #### L IPID, CMP, TSH, T7 #### [facility] [address] [address] [address] Cheng Esqueda Glucose [Mass/Vol] 122 mg/dL Critically high 74-106 [facility] Comment on above: Performed By: #### L IPID, CMP, TSH, T7 #### [facility] [address] [address] [address] Cheng Esqueda Potassium [Moles/Vol] 4.0 mmol/L Normal 3.5-5.1 [facility] Comment on above: Performed By: #### L IPID, CMP, TSH, T7 #### [facility] [address] [place] [address] Dr. Cheng Esqueda Protein [Mass/Vol] 8.1 g/dL Normal 6.4-8.2 [facility] Comment on above: Performed By: #### L IPID, CMP, TSH, T7 #### [facility] [address] [place] [address] Dr. Cheng Esqueda Sodium [Moles/Vol] 138 mmol/L Normal 136-145 [facility] Comment on above: Performed By: #### L IPID, CMP, TSH, T7 #### [facility] [address] [address] [address] Cheng Esqueda Urea nitrogen [Mass/Vol] 12.0 mg/dL Normal 7.0-18.0 [facility] Comment on above: Performed By: #### L IPID, CMP, TSH, T7 #### [facility] [address] [address] [address] Cheng Esqueda Urea nitrogen/Creatinine [Mass ratio] 11.3 mg/mg Normal [facility] Comment on above: Performed By: #### L IPID, CMP, TSH, T7 #### [facility] [address] [address] [address] Cheng Esqueda TSHon 10-13-2021 TSH 0.885 uIU/mL Normal 0.358-3.740 [facility] Comment on above: Performed By: #### L IPID, CMP, TSH, T7 #### [facility] [address] [place] [address] Dr. Cheng Esqueda VITAMIN B12on 10-13-2021 Cobalamin (Vitamin B12) [Mass/Vol] 549.0 pg/mL Normal 193.0-986.0 [facility] Comment on above: Performed By: #### V ITB12 #### [facility] [address] [place] [address] Dr. Cheng Esqueda [facility] SARS-CoV-2 (COVID-19) RNA LLOYD+probe Ql (Unsp spec) Not detected Normal NOT DETECTED [facility] Comment on above: Result Comment: This test is not yet approved or cleared by the [place] FDA. When there are no FDA-approved or cleared tests available, and other criteria are met, FDA can make tests available under an emergency access mechanism called an Emergency Use Authorization (EUA). The EUA for this test is supported by the [place] of Health and Human Service's (HHS's) declaration [...] consistent with SARS-CoV-2. Performed By: #### C VDTBH #### [facility] [address] [place], [place] [id number] Dr. Cheng Esqueda Encounters Encounter Date Encounter Type Care Provider Facility Start: 06-21-2024 End: 06-21-2024 ambulatory [facility] Start: 06-21-2024 Encounter for other preprocedural examination [facility] Start: 06-21-2024 End: 06-21-2024 Patient encounter status Samara Ordonez BUMPER AND PAINTER - SOCIAL SERVICE DIRECTOR Work Phone: [facility] Start: 06-21-2024 End: 06-21-2024 Subsequent hospital visit by physician Samara Ordonez BUMPER AND PAINTER - SOCIAL SERVICE DIRECTOR [facility] Comment on above: Pre-op testing Start: 02-06-2024 End: 02-06-2024 ambulatory [facility] Start: 02-06-2024 End: 02-06-2024 Encounter for other preprocedural examination [facility]ARA [facility] Start: 02-06-2024 End: 02-06-2024 Subsequent hospital visit by physician Samara Ordonez APRN - SOCIAL SERVICE DIRECTOR Work Phone: [facility] Start: 10-16-2023 End: 10-16-2023 ambulatory Martell R NILL Facility:[facility] Start: 10-16-2023 End: 10-16-2023 Patient encounter procedure Martell R NILL [facility] [place] Start: 10-13-2023 ambulatory Martell NILL Facility:[facility] [place] Start: 09-30-2023 ambulatory Martell NILL Facility:[facility] Start: 05-16-2022 ambulatory Rc Milan DO Fa cility:[facility] Start: 11-03-2021 ambulatory SAMARA ORDONEZ Facility: [facility] Start: 10-16-2021 Encounter for genera l adult medical examination without abnormal findings SAMARA ORDONEZ [facility] Start: 10-13-2021 End: 10-14-2021 ambulatory SAMARA ORDONEZ Facility:[facility] Start: 10-13-2021 End: 10-14-2021 Encounter for general adult medical examination without abnormal findings SAMARA ORDONEZ Facility:[facility] Start: 08-03-2021 ambulatory SAMARA ORDONEZ Facility: [facility] Start: 03-12-2021 End: 03-12-2021 ambulatory SAMARA ORDONEZ Facility:[facility] Procedures Date Procedure Procedure Detail Performing Clinician Start: 06-21-2024 Basic metabolic pane l calcium total Jose Vee DO Work Phone: None (qualifier value) Al CARMONA Plan of Treatment Date Care Activity Detail Author Start: 10-08-2024 Influenza vaccination Flu vacc ine (Season Ended) Peng Hancock [facility] Start: 07-06-2024 End: 07-06-2024 Patient encounter procedure 07/06/2024 10:00 AM EDT Office Visit [facility] [address] [place] [id number] Jose Vee, DO [address] [place], [place] [id number] Post op hernia [facility] Comment on above: Post op hernia Start: 06-23-2024 End: 06-23-2024 Admission to same day surgery center 06/23/2024 10:30 AM EDT - 06/23/2024 12:40 PM EDT Surgery [facility] [address] [place], [place] [id number] Jose Vee, DO [address] [place] [address] HERNIA VENTRAL REPAIR LAPAROSCOPIC ROBOTIC - With Mesh [facility] Comment on above: HERNIA VENTRAL REPAI R LAPAROSCOPIC ROBOTIC - With Mesh Start: 06-23-2024 End: 06-23-2024 HERNIA VENTRAL REPAIR [employer]AR[employer]OT[employer] HERNIA VENTRAL REPAIR LAPAROSCOP[employer]OTIC Ventral hernia without obstruction or gangrene 06/23/2024 10:30 AM EDT [facility] Start: 06-23-2024 Subsequent hospital visit by physician 06/23/2024 10:30 AM EDT Hospital Encounter [facility] [address] [place] [id number] Jose Vee, DO [address] [place], [place] [id number] [facility] Start: 02-24-2024 End: 02-24-2024 Patient encounter procedure 02/24/2024 8:30 AM EST Office Visit [facility] [address] [place] [address] Jose Vee, DO [address] [place] [address] Post op hernia [facility] Comment on above: Post op hernia Start: 02-11-2024 End: 02-11-2024 Admission to same day surgery center 02/11/2024 8:00 AM EST - 02/11/2024 10:10 AM EST Surgery [facility] [address] [place] [id number] Jose Vee, DO [address] [place] [address] HERNIA VENTRAL REPAIR LAPAROSCOPIC ROBOTIC [facility] Comment on above: HERNIA VENTRAL REPAI R [employer]OT[employer] Start: 02-11-2024 End: 02-11-2024 HERNIA VENTRAL REPAIR [employer]AR[employer]COP[employer]OT[employer] HERNIA VENTRAL REPAIR LAPAROSCOPIC ROBOTIC Ventral hernia without obstruction or gangrene 02/11/2024 8:00 AM EST [facility] Start: 02-11-2024 Subsequent hospital visit by physician 02/11/2024 8:00 AM EST Hospital Encounter [facility] [address] [place] [id number] Jose Vee, DO [address] [place] [address] [facility] Start: 11-09-2023 COVID-19 Vaccine ( season) COVID-19 Vaccine ( season) [facility] Start: 11-09-2023 COVID-19 Vaccine ( season) COVID-19 Vaccine ( season) [facility] Start: 10-09-2023 Influenza vaccination Flu vaccine (# 1) [facility] Start: 09-09-2014 Diabetes screen Diabetes screen [facility] Start: 09-09-1998 DTaP/Tdap/Td vaccine (1 - Tdap) DTaP/Tdap/Td vaccine (1 - Tdap) [facility] Start: 09-09-1998 Hepatitis B vaccine (1 of 3 - 19+ 3-dose series) Hepatitis B vaccine (1 of 3 - 19+ 3-dose series) [facility] Start: 09-09-1997 Hepatitis C screening Hepatitis C sc reen [facility] Start: 09-09-1994 HIV screening HIV screen [facility] Start: 09-09-1992 Varicella vaccine (1 of 2 - 13+ 2-dose series) Varicella vaccine (1 of 2 - 13+ 2-dose series) [facility] Start: 1991 Depression Screen Depression Screen [facility] Start: 09-09-1989 Lipid panel Lipids [facility] Immunizations Immunization Date Immunization Notes Care Provider Fa cili 02-03-2021 SARS-CoV-2 (COVID-19 ) mRNA BNT-162b2 vax [employer]ell [employer] [facility] 06-24-2020 SARS-CoV-2 (COVID-19 ) mRNA BNT-162b2 vax Martell NILL [facility] 06-02-2020 SARS-CoV-2 (COVID-19 ) mRNA BNT-162b2 vax Martell NILL [facility] Payers Date Payer Category Payer Unknown [id number] 2019 Unknown 1989 Unknown [id number] 2.16. [id number] 1979 Unknown [id number] 2.16.84 [id number] 1979 Unknown [id number] 2.16.84 [id number] 1979 Unknown [id number] 2.16.84 [id number] 1979 Unknown [id number] 2.16.84 [id number] 1979 Unknown [id number] 2.16.8 [id number] 1979 Unknown [id number] 2.16. [id number] 1979 Unknown [id number] 2.16. [id number] 1959 Self-pay [id number] 1959 Unknown [id number] Social History Date Type Detail Facility Tobacco smoking status [facility] [place] Start: 06-14-2024 Sex Assigned At Male F [facility] Tobacco smoking stat [facility] Tobacco smoking consumption unknown [employer] Start: 1980 Sex assigned at Not on file B on [employer] Start: 12-23-2023 Gender identity Identifies as male gender (finding) [employer] Start: 06-14-2024 Tobacco smoking stat [facility] Ex-smoker [employer] Work Phone: History of tobacco use Current smoker [facility] History of tobacco use Cigarette Smoker B on [employer] Start: 06-14-2024 Tobacco use and exposure Smokeless tobacco non-user [employer] Start: 06-14-2024 Alcoholic beverage intake Ex-drinker (finding) [facility] Start: 06-14-2024 History of Social function [employer] Start: 06-14-2024 Tobacco Comment Quit 9 years a go (as of 2024) [employer] Start: 06-13-2022 Sex Male (finding) [facility] [employer] [facility] Evaluation + Plan note Note Date & Type Note Facility Evaluation + Plan note No data available for this section [facility] [place] Evaluation note Note Date & Type Note Facility Evaluation note Diagnosis Pre-op testing Preoperative examination, unspecified Ventral hernia without obstruction or gangrene Ventral hernia, unspecified, without mention of obstruction or gangrene documented in this encounter [facility] Discharge instructions Note Date & Type Note Facility Hospital Discharge instructions No data available for this section [facility] Progress note Note Date & Type Note Facility Progress note No data available for this section [facility] Summary Purpose Family History No Family History Records FoundNo Family History Records Found No data available for this section No Family History Records FoundNo Family History Records Found Advance Directives No Advanced Directives Records FoundNo Advanced Directives Records FoundNo Advanced Directives Records FoundNo Advanced Directives Records Found Additional Source Comments (unrecognized sect ion and content) No Status Records FoundNo Status Records FoundNo Status Records FoundNo Status Records Found INFORMATION SOURCE (unrecogn ized section and content) DATE CREATED AUTHOR 11/04/2021 [facility] DATE CREATED AUTHOR AUTHOR'S ORGANIZ ATION 04/30/2022 [facility] DATE CREATED AUTHOR AUTHOR'S ORGANIZ ATION 10/19/2023 [facility] DATE CREATED AUTHOR AUTHOR'S ORGANIZ ATION 06/23/2024 [facility] Patient Care team informatio n (unrecognized section and content) Supervisor Lens Generating Relationship Specialty Start Date End Date Samara Ordonez APRN - CNP [address] [place] [address] [place] [address] PCP - General 10/16/23 Supervisor Lens Generating Relationship Specialty Start Date End Date Samara Ordonez APRN - CNP [address] [place] [address] [place] [address] PCP - General 10/16/23 FOR RECORDS PERTAINING TO PATIENTS WHO ARE [...] BE BASED ON THE PRIMARY CLINICAL RECORDS. [employer] provides no warranty or guarantee of the accuracy or completeness of information in this document.
[2024-11-06 10:08] LABS: Hematocrit 45.3 % (42.0-54.0); Hemoglobin 15.8 g/dL (14.0-18.0); Immature Granulocytes Abs Auto 0.03 10^3/uL (0.00-0.03); Immature Granulocytes Pct Auto 0.4 % (0.0-0.5); Lymphocytes Absolute Auto 2.3 10^3/uL (1.2-3.8); Mean Corpuscular HGB Conc 34.9 g/dL (29.9-35.2); Mean Corpuscular Hemoglobin 32.1 pg (25.9-34.0); Mean Corpuscular Volume 92.1 fL (80.0-94.0); Platelet Count 356 10^3/uL (150-450); Red Blood Count 4.92 10^6/uL (4.70-6.10); White Blood Count 7.5 10^3/uL (4.0-11.0)
[2024-11-06 11:03] LABS: Alanine Aminotransferase 60 U/L (16-63); Albumin Globulin Ratio 1.0; Albumin Level 4.2 g/dL (3.4-5.0); Alkaline Phosphatase 87 U/L (46-116); Anion Gap 12.2; Aspartate Amino Transferase 26 U/L (15-37); Blood Urea Nitrogen 15.0 mg/dL (7.0-18.0); Calcium 9.5 mg/dL (8.5-10.1); Carbon Dioxide 29.4 mmol/L (21.0-32.0); Chloride 99 mmol/L (98-107); Cholesterol 194 mg/dL (<=200); Estimated GFR (African America >60 (>=60 mL/min/1.73m^2); Estimated GFR (Non-African Ame >60 (>=60 mL/min/1.73m^2); Free T3 3.75 pg/mL (2.18-3.98); Globulin 4.3 g/dL; Glucose 98 mg/dL (74-106); HDL Cholesterol 37 mg/dL (40-60); Potassium 3.6 mmol/L (3.5-5.1); Sodium 137 mmol/L (136-145); Thyroid Stimulating Hormone 1.172 uIU/mL (0.358-3.740); Total Protein 8.5 g/dL (6.4-8.2); Triglycerides 190 mg/dL (<=150); VLDL CHOLESTEROL 38.0 mg/dL
[2024-11-06 11:24] LABS: Iron 119.0 ug/dL (65.0-175.0)
== END 2024-11-06 09:37 | disposition home or self-care (01) ==
PROVIDERS: PCP Nurse Practitioner Family; Visit Provider Nurse Practitioner Family
DX: Z00.00 Encounter for general adult medical examination without abnormal findings (principal)
CPT/HCPCS: 36415; 80053; 80061; 82306; 83036; 83525; 83540; 84436; 84443; 84481; 85025